=== PATIENT | female | born 1980 | race Two or more races ===

== ENCOUNTER 2017-05-02 06:07 | Emergency (ER) | payer MEDICAID ==
[~2017-05-02] VITALS: Ht 162.6 cm; Wt 63.5 kg
[2017-05-02] MEDS ORDERED: IV NORMAL SALINE 1000ML BAG 1,000 ML IV ONE (06:45)
[2017-05-02] MEDS ORDERED: ONDANSETRON PF 4 MG/2 ML VIAL. IV ONE (06:45)
[2017-05-02] MEDS ORDERED: HYDROmorphone 2 MG/ML VIAL IV PRN (06:45)
[2017-05-02 06:53] LABS: BASO # 0.1 x10^3/uL (0.0-0.2); BASO % 1 % (0-3); EOS % 2 % (0-3); HEMATOCRIT 39.2 % (36.0-47.0); HEMOGLOBIN 13.6 g/dL (12.0-15.5); LYMPH % 16 % (24-48); MEAN CORPUSCULAR HEMOGLOBIN 32 pg (25-35); MEAN CORPUSCULAR HGB CONC 35 g/dL (31-37); MEAN CORPUSCULAR VOLUME 93 fL (79-100); MONO % 6 % (0-9); NEUT % 75 % (31-73); PLATELET COUNT 286 x10^3/uL (140-400); RED BLOOD COUNT 4.24 x10^6/uL (3.50-5.40); RED CELL DISTRIBUTION WIDTH 12.9 % (11.5-14.5); WHITE BLOOD COUNT 12.7 x10^3/uL (4.0-11.0)
[2017-05-02 06:57] LABS: CALCIUM 9.1 mg/dL (8.5-10.1); CREATININE 0.6 mg/dL (0.6-1.0); GFR 111.9; POTASSIUM 3.6 mmol/L (3.5-5.1)
[2017-05-02] MEDS ORDERED: LIDO:MAALOX:DONNATAL 1:1:1 15 ML SINGLE DOSE SWSW ONE (07:00)
[2017-05-02 07:03] LABS: ALBUMIN 3.9 g/dL (3.4-5.0); ALBUMIN/GLOBULIN RATIO 1.1 (1.0-1.7); TOTAL BILIRUBIN 1.2 mg/dL (0.2-1.0); TOTAL PROTEIN 7.4 g/dL (6.4-8.2)
[2017-05-02] MEDS ORDERED: OMEP40CA5 PO (07:14)
--- NOTE | 2017-05-02 07:14 | PHYS DOC ---
Past Medical History Past Medical History: Bipolar, Depression, GERD Additional Past Medical Histor: gastritis, pancreatitis, ovary cysts Past Surgical History: Cholecystectomy Alcohol Use: None Drug Use: Marijuana, Other Social History Narrative: "crack" none since 2014 per pt Adult General Chief Complaint Chief Complaint: ABDOMINAL PAIN HPI HPI 37-year-old female presenting to the emergency department today with pain in the epigastric region. It is a sharp shooting pain that is nonradiating intermittent and associated with dark black stools. She describes it is also a burning pain. She has a history of gastritis and pancreatitis. The pain is been present for the last for 5 days. It started getting worse around 5 this morning. Review of systems is negative for chest pain shortness of breath fevers chills. Positive for nausea without vomiting. She denies lightheadedness or syncope. All other review of systems is negative unless otherwise noted in history of present illness. ED course: 37-year-old female presenting to the emergency department with epigastric abdominal pain. Afebrile normal pulse. Pertinent physical exam findings showed a soft minimally tender abdomen in the epigastrium. Negative McBurney's point. Negative Pike sign. Otherwise unremarkable exam. The patient was given a GI cocktail IV fluids and pain and nausea medications. On reexamination the patient was feeling much better repeat abdominal exam was soft and nontender. Labs reviewed. Patient has a mild increase in her bilirubin. Her gallbladder is surgically absent on POC US performed at the bedside. Otherwise she does not have an obstructive pattern on her liver enzymes. The patient has a nonspecific leukocytosis. The patient was subsequently discharged home to follow up with her PCP. She was discharged home on omeprazole. The patient was then discharged home in stable condition to follow up with their primary care physician over the next 2-3 days. They were to return if their symptoms worsened or if they were concerned for any reason. [id number] discharge instructions and return precautions were given. Patient' s questions were answered to their satisfaction. Patient is comfortable plan. Review of Systems Review of Systems SEE ABOVE. Current Medications Current Medications Current Medications Medications (Trade) Dose Ordered Sig/Kilo Start Time Stop Time Status Last Admin Dose Admin Hydromorphone HCl (Dilaudid) 0.5 mg PRN Q1HR PRN 05/02/17 06:45 05/02/17 07:12 0.5 MG Multi-Ingredient Mouthwash/Gargle (Gi Cocktail Single Dose) 15 ml 1X ONCE 05/02/17 07:00 05/02/17 07:01 DC 05/02/17 07:12 15 ML Ondansetron HCl (Zofran) 4 mg 1X ONCE 05/02/17 06:45 05/02/17 06:47 DC 05/02/17 07:12 4 MG Sodium Chloride 1,000 ml @ 1,000 mls/hr 1X ONCE 05/02/17 06:45 05/02/17 07:44 DC 05/02/17 07:12 1,000 MLS/HR Allergies Allergies Allergies Coded Allergies Type Severity Reaction Last Updated Verified Iodinated Contrast- Oral and IV Dye Allergy Unknown 05/02/17 Yes Physical Exam Physical Exam Constitutional: Well developed, well nourished, no acute distress, non-toxic appearance. [] HENT: Normocephalic, atraumatic, bilateral external ears normal, oropharynx moist, no oral exudates, nose normal. [] Eyes: PERRLA, EOMI, conjunctiva normal, no discharge. Neck: Normal range of motion, no tenderness, supple, no stridor. [] Cardiovascular:Heart rate regular rhythm, no murmur Lungs & Thorax: Bilateral breath sounds clear to auscultation [] Abdomen: see above Skin: Warm, dry, no erythema, no rash. [] Back: No tenderness, no CVA tenderness. [] Extremities: No tenderness, no cyanosis, no clubbing, ROM intact, no edema. Neurologic: Alert and oriented X 3, normal motor function, normal sensory function, no focal deficits noted. Psychologic: Affect normal, judgement normal, mood normal. [] Current Patient Data Vital Signs Vital Signs Date Time Temp Pulse Resp B/P (MAP) Pulse Ox O2 Delivery O2 Flow Rate FiO2 05/02/17 08:31 74 20 114/68 (83) 100 05/02/17 06:07 98.5 Room Air 98.5 Lab Values Laboratory Tests Test 05/02/17 06:14 05/02/17 06:20 05/02/17 07:00 POC Urine HCG, Qualitative Hcg negative (Negative) White Blood Count 12.7 x10^3/uL (4.0-11.0) H Red Blood Count 4.24 x10^6/uL (3.50-5.40) Hemoglobin 13.6 g/dL (12.0-15.5) Hematocrit 39.2 % (36.0-47.0) Mean Corpuscular Volume 93 fL (79-100) Mean Corpuscular Hemoglobin 32 pg (25-35) Mean Corpuscular Hemoglobin Concent 35 g/dL (31-37) Red Cell Distribution Width 12.9 % (11.5-14.5) Platelet Count 286 x10^3/uL (140-400) Neutrophils (%) (Auto) 75 % (31-73) H Lymphocytes (%) (Auto) 16 % (24-48) L Monocytes (%) (Auto) 6 % (0-9) Eosinophils (%) (Auto) 2 % (0-3) Basophils (%) (Auto) 1 % (0-3) Neutrophils # (Auto) 9.5 x10^3uL (1.8-7.7) H Lymphocytes # (Auto) 2.0 x10^3/uL (1.0-4.8) Monocytes # (Auto) 0.8 x10^3/uL (0.0-1.1) Eosinophils # (Auto) 0.2 x10^3/uL (0.0-0.7) Basophils # (Auto) 0.1 x10^3/uL (0.0-0.2) Sodium Level 138 mmol/L (136-145) Potassium Level 3.6 mmol/L (3.5-5.1) Chloride Level 103 mmol/L (98-107) Carbon Dioxide Level 26 mmol/L (21-32) Anion Gap 9 (6-14) Blood Urea Nitrogen 12 mg/dL (7-20) Creatinine 0.6 mg/dL (0.6-1.0) Estimated GFR (Cockcroft-Gault) 111.9 BUN/Creatinine Ratio 20 (6-20) Glucose Level 108 mg/dL (70-99) H Calcium Level 9.1 mg/dL (8.5-10.1) Total Bilirubin 1.2 mg/dL (0.2-1.0) H Aspartate Amino Transferase (AST) 13 U/L (15-37) L Alanine Aminotransferase (ALT) 12 U/L (14-59) L Alkaline Phosphatase 64 U/L (46-116) Total Protein 7.4 g/dL (6.4-8.2) Albumin 3.9 g/dL (3.4-5.0) Albumin/Globulin Ratio 1.1 (1.0-1.7) Lipase 77 U/L (73-393) Urine Collection Type Unknown Urine Color Yellow Urine Clarity Clear Urine pH 6.5 Urine Specific [place] 1.010 Urine Protein Negative mg/dL (NEG-TRACE) Urine Glucose (UA) Negative mg/dL (NEG) Urine Ketones (Stick) Trace mg/dL (NEG) Urine Blood Negative (NEG) Urine Nitrite Negative (NEG) Urine Bilirubin Negative (NEG) Urine Urobilinogen Dipstick 0.2 mg/dL (0.2 mg/dL) Urine Leukocyte Esterase Negative (NEG) Urine RBC Occ /HPF (0-2) Urine WBC Occ /HPF (0-4) Urine Squamous Epithelial Cells Mod /LPF Urine Bacteria 0 /HPF (0-FEW) Urine Mucus Slight /LPF Laboratory Tests 05/02/17 06:20 Laboratory Tests 05/02/17 06:20 EKG EKG [] Radiology/Procedures Radiology/Procedures [] Course & Med Decision Making Course & Med Decision Making Pertinent Labs and Imaging studies reviewed. (See chart for details) [] Dragon Disclaimer Dragon Disclaimer This electronic medical record was generated, in whole or in part, using a voice recognition dictation system. Departure Departure Impression: Primary Impression: Epigastric abdominal pain Additional Impression: Gastritis Disposition: 01 HOME, SELF-CARE Condition: STABLE Referrals: NO PCP (PCP) RENUKA MCKEON MD Patient Instructions: Abdominal Pain Additional Instructions: Thank you for allowing us to participate in your care today. Followup with your primary care physician in 3 days if your symptoms do not improve. Call your Primary Doctor tomorrow and inform them of your visit today. If you do not have a primary care provider you can ask for a list of our primary care providers. Return to the emergency department you have any new or concerning findings. This should be evaluated by the primary care physician and any necessary consulting services for continued management within a few days after discharge. Return to emergency room if you have any new or concerning symptoms including but not limited to fever, chills, nausea, vomiting, intractable pain, any new rashes, chest pain, shortness of air, uncontrolled bleeding, difficulty breathing, and/or vision loss. Scripts Hydrocodone Bit/Acetaminophen (HYDROCODONE-APAP 5-325 ) 1 Each Tablet 1 TAB PO PRN Q6HRS Y for PAIN, #8 TAB 0 Refills Be careful as this medication may cause you to be drowsy or tired. Do not drive on this medication. Prov: JOSÉ MIGUEL ESPINAL MD 05/02/17 Ondansetron (ZOFRAN ODT) 4 Mg Tab.rapdis 1 TAB SL PRN Q8HRS Y for NAUSEA, #6 TAB Prov: JOSÉ MIGUEL ESPINAL MD 05/02/17 Omeprazole (OMEPRAZOLE) 40 Mg Capsule.dr 1 CAP PO DAILY, #15 CAP 0 Refills Prov: JOSÉ MIGUEL ESPINAL MD 05/02/17 Problem Qualifiers JOSÉ MIGUEL ESPINAL MD May 02, 2017 07:14
[2017-05-02 07:17] LABS: BILIRUBIN,URINE NEGATIVE (NEG); GLUCOSE,URINE NEGATIVE (NEG); NITRITE,URINE NEGATIVE (NEG); PH,URINE 6.5; PROTEIN,URINE NEGATIVE (NEG-TRACE); UROBILINOGEN,URINE 0.2 mg/dL (0.2 mg/dL)
[2017-05-02 07:34] LABS: BACTERIA,URINE 0 /HPF (0-FEW); RBC,URINE OCC /HPF (0-2); SQUAMOUS EPITHELIAL CELL,UR MOD /LPF; WBC,URINE OCC /HPF (0-4)
[2017-05-02] MEDS ORDERED: HYDR-2758 PO (09:01)
[2017-05-02] MEDS ORDERED: ONDA4TAB10 SL (09:01)
[2017-05-02 09:25] VITALS: BP 104/67
== END 2017-05-02 09:30 | disposition home or self-care (01) ==
LOC: ER 06:07
DX: K29.70 Gastritis, unspecified, without bleeding (principal); K21.9 Gastro-esophageal reflux disease without esophagitis; F31.9 Bipolar disorder, unspecified; F12.10 Cannabis abuse, uncomplicated; Z90.49 Acquired absence of other specified parts of digestive tract; Z91.041 Radiographic dye allergy status
CPT/HCPCS: 36415; 80053; 81001; 81025; 83690; 85027; 96361; 96374; 96375; 99285; J1170; J2405; J7030

== ENCOUNTER 2017-08-18 16:58 | Emergency (ER) | payer MEDICAID, OTHER ==
[~2017-08-18] VITALS: Ht 170.2 cm; Wt 63.5 kg
[~2017-08-18 16:58] MED LIST: HYDR-2758 PO; OMEP40CA5 PO; ONDA4TAB10 SL
[2017-08-18 17:12] VITALS: BP 135/60
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
== END 2017-08-18 18:35 | disposition home or self-care (01) ==
LOC: ER 16:58 → EDBD 16:58 → ER 18:35
DX: S16.1XXA Strain of muscle, fascia and tendon at neck level, initial encounter (principal); S09.90XA Unspecified injury of head, initial encounter; K21.9 Gastro-esophageal reflux disease without esophagitis; F31.9 Bipolar disorder, unspecified; Z90.49 Acquired absence of other specified parts of digestive tract; Z91.041 Radiographic dye allergy status; Y08.89XA Assault by other specified means, initial encounter; Y93.89 Activity, other specified; Y99.8 Other external cause status; Y92.89 Other specified places as the place of occurrence of the external cause
CPT/HCPCS: 70450; 72125; 81025; 99284-25

== ENCOUNTER 2017-09-26 14:50 | Emergency (ER) | payer OTHER ==
[~2017-09-26] VITALS: Ht 170.2 cm; Wt 72.6 kg
[2017-09-26 15:19] VITALS: BP 101/50
[2017-09-26] MEDS ORDERED: NAPR500T PO (15:20)
--- NOTE | 2017-09-26 15:20 | PHYS DOC ---
Past Medical History Past Medical History: Bipolar, Depression, GERD Additional Past Medical Histor: gastritis, pancreatitis, ovary cysts Past Surgical History: Cholecystectomy Alcohol Use: None Drug Use: Marijuana, Other Adult General Chief Complaint Chief Complaint: UPPER EXTREMITY INJURY HPI HPI Patient is a 37 year old [female presents to the emergency department with complaints of left upper extremity discomfort. Prior to arrival the patient had donated plasma. She states that she had infiltration of blood into the tissue and it is causing discomfort. Review of Systems Review of Systems Constitutional: Denies fever or chills [] Eyes: Denies change in visual acuity, redness, or eye pain [] HENT: Denies nasal congestion or sore throat [] Respiratory: Denies cough or shortness of breath [] Cardiovascular: No additional information not addressed in HPI [] GI: Denies abdominal pain, nausea, vomiting, bloody stools or diarrhea [] : Denies dysuria or hematuria [] Musculoskeletal: Upper extremity pain Integument: Denies rash or skin lesions [] Neurologic: Denies headache, focal weakness or sensory changes [] Endocrine: Denies polyuria or polydipsia [] All other systems were reviewed and found to be within normal limits, except as documented in this note. Allergies Allergies Allergies Coded Allergies Type Severity Reaction Last Updated Verified Iodinated Contrast- Oral and IV Dye Allergy Unknown 05/02/17 Yes Physical Exam Physical Exam Constitutional: Well developed, well nourished, no acute distress, non-toxic appearance. [] Neck: Normal range of motion, no tenderness, supple, no stridor. [] Cardiovascular:Heart rate regular rhythm, no murmur [] Lungs & Thorax: Bilateral breath sounds clear to auscultation [] Skin: Warm, dry, no erythema, no rash. [] Back: No tenderness, no CVA tenderness. [] Extremities: Upper extremity left shoulder, with wrist exam unremarkable. Left antecubital space with a 2 cm hematoma. It is soft. There is no erythema. Patient does have full range of motion but does complain of discomfort. Neurovascular intact distally. Neurologic: Alert and oriented X 3, normal motor function, normal sensory function, no focal deficits noted. [] EKG EKG [] Radiology/Procedures Radiology/Procedures [] Course & Med Decision Making Course & Med Decision Making Pertinent Labs and Imaging studies reviewed. (See chart for details) [] Dragon Disclaimer Dragon Disclaimer This electronic medical record was generated, in whole or in part, using a voice recognition dictation system. Departure Departure Impression: Primary Impression: Hematoma of arm Disposition: HOME, SELF-CARE Condition: STABLE Referrals: [facility]CP [facility]PCP) [facility] Instructions: Hematoma Scripts Naproxen (NAPROSYN) 500 Mg Tablet 500 MG PO BID Y for PAIN, #20 TAB Prov: JACK CEE APRN 09/26/17 Problem Qualifiers Primary Impression: Hematoma of arm Encounter type: initial encounter Laterality: left Qualified Codes: S40.022A - Contusion of left upper arm, initial encounter JACK CEE APRN Sep 26, 2017 15:20
== END 2017-09-26 15:31 | disposition home or self-care (01) ==
LOC: ER 14:50
DX: S40.022A Contusion of left upper arm, initial encounter (principal); F31.9 Bipolar disorder, unspecified; K21.9 Gastro-esophageal reflux disease without esophagitis; F12.10 Cannabis abuse, uncomplicated; Z90.49 Acquired absence of other specified parts of digestive tract; Z91.041 Radiographic dye allergy status; X58.XXXA Exposure to other specified factors, initial encounter; Y93.89 Activity, other specified; Y92.89 Other specified places as the place of occurrence of the external cause; Y99.8 Other external cause status
CPT/HCPCS: 99282

== ENCOUNTER 2017-11-17 10:04 | Emergency (ER) | payer OTHER ==
[2017-11-17 10:37] LABS: BILIRUBIN,URINE NEGATIVE (NEG); CLARITY,URINE CLEAR; COLOR,URINE YELLOW; GLUCOSE,URINE NEGATIVE (NEG); NITRITE,URINE NEGATIVE (NEG); PH,URINE 6.5; PROTEIN,URINE NEGATIVE (NEG-TRACE)
[2017-11-17 10:42] LABS: BACTERIA,URINE FEW /HPF (0-FEW); SQUAMOUS EPITHELIAL CELL,UR MANY /LPF
[2017-11-17] MEDS: fentaNYL PF VIAL 100 MCG/2 ML VIAL IV (10:43)
[2017-11-17 10:44] LABS: RBC,URINE OCC /HPF (0-2)
[2017-11-17] MEDS: ONDANSETRON PF 4 MG/2 ML VIAL. IV (10:44)
[2017-11-17 12:17] LABS: NEG OBC UR NEG; POS OBC UR POS; U PREG PATIENT NEGATIVE (NEG)
[2017-11-17] MEDS: KETOROLAC 15 MG/ML VIAL. IV (12:45)
[2017-11-19 07:01] LABS: URINE HCG POC HCG NEGATIVE (Negative)
== END 2017-11-17 14:07 | disposition home or self-care (01) ==
LOC: ER 10:04
DX: R10.9 Unspecified abdominal pain (principal); R00.2 Palpitations; K21.9 Gastro-esophageal reflux disease without esophagitis; F31.9 Bipolar disorder, unspecified; Z91.041 Radiographic dye allergy status; F12.10 Cannabis abuse, uncomplicated; Z90.49 Acquired absence of other specified parts of digestive tract
CPT/HCPCS: 74176; 81001; 81025; 96374; 96375; 99285-25; J1885; J2405; J3010

== ENCOUNTER 2018-01-09 12:38 | Emergency (ER) | payer OTHER ==
[2018-01-09 13:50] LABS: ADD MAN DIFF? NO
[2018-01-09 13:53] LABS: BASO # 0.1 x10^3/uL (0.0-0.2); BASO % 1 % (0-3); EOS # 0.2 x10^3/uL (0.0-0.7); EOS % 2 % (0-3); HEMATOCRIT 37.7 % (36.0-47.0); HEMOGLOBIN 12.8 g/dL (12.0-15.5); LYMPH # 2.3 x10^3/uL (1.0-4.8); LYMPH % 28 % (24-48); MEAN CORPUSCULAR HEMOGLOBIN 32 pg (25-35); MEAN CORPUSCULAR HGB CONC 34 g/dL (31-37); MEAN CORPUSCULAR VOLUME 94 fL (79-100); MONO # 0.4 x10^3/uL (0.0-1.1); MONO % 5 % (0-9); NEUT # 5.3 x10^3uL (1.8-7.7); NEUT % 64 % (31-73); PLATELET COUNT 291 x10^3/uL (140-400); RED CELL DISTRIBUTION WIDTH 13.1 % (11.5-14.5); WHITE BLOOD COUNT 8.3 x10^3/uL (4.0-11.0)
[2018-01-09 14:05] LABS: BILIRUBIN,URINE NEGATIVE (NEG); CLARITY,URINE CLEAR; COLOR,URINE YELLOW; GLUCOSE,URINE NEGATIVE (NEG); NITRITE,URINE NEGATIVE (NEG); PROTEIN,URINE NEGATIVE (NEG-TRACE)
[2018-01-09 14:06] LABS: ANION GAP 7 (6-14); BLOOD UREA NITROGEN 10 mg/dL (7-20); BUN/CREATININE RATIO 14 (6-20); CALCIUM 8.6 mg/dL (8.5-10.1); CARBON DIOXIDE 30 mmol/L (21-32); CHLORIDE 104 mmol/L (98-107); CREATININE 0.7 mg/dL (0.6-1.0); GFR 93.6; GLUCOSE 111 mg/dL (70-99); POTASSIUM 3.8 mmol/L (3.5-5.1); SODIUM 141 mmol/L (136-145)
[2018-01-09 14:09] LABS: ALBUMIN 3.6 g/dL (3.4-5.0); ALBUMIN/GLOBULIN RATIO 1.1 (1.0-1.7); ALK PHOS 69 U/L (46-116); ALT (SGPT) 12 U/L (14-59); AST (SGOT) 10 U/L (15-37); TOTAL BILIRUBIN 1.1 mg/dL (0.2-1.0)
[2018-01-09] MEDS: fentaNYL PF VIAL 100 MCG/2 ML VIAL IV (14:13)
[2018-01-09] MEDS: KETOROLAC 30 MG/ML INJ. IV (14:13)
[2018-01-09 14:14] LABS: BACTERIA,URINE MODERATE /HPF (0-FEW); RBC,URINE 0 /HPF (0-2); SQUAMOUS EPITHELIAL CELL,UR MOD /LPF
[2018-01-09] MEDS: MORPHINE SULFATE 4 MG/ML DISP.SYRIN. IV (15:29)
[2018-01-09] MEDS: HYDROcodone/APAP 5/325MG 1 TAB TABLET PO (16:16)
[2018-01-10 07:31] LABS: URINE HCG POC HCG NEGATIVE (Negative)
[2018-01-10 14:29] LABS: CHLAMYDIA PROBE Negative (Negative); GC PROBE Negative (Negative)
== END 2018-01-09 17:55 | disposition home or self-care (01) ==
LOC: ER 17:55
DX: N83.202 Unspecified ovarian cyst, left side (principal); N76.0 Acute vaginitis; B96.89 Other specified bacterial agents as the cause of diseases classified elsewhere; K21.9 Gastro-esophageal reflux disease without esophagitis; F31.9 Bipolar disorder, unspecified
CPT/HCPCS: 36415; 76830; 76856; 80053; 81001; 81025; 85025; 87086; 87491; 87591; 96374; 96375; 99285-25; J1885; J2270; J3010; Q0111